=== PATIENT | female | born 1945 | race Caucasian/White ===

== ENCOUNTER 2019-03-09 16:25 | Inpatient (IN) | payer MEDICARE, OTHER ==
[~2019-03-09] VITALS: Ht 157.5 cm; Wt 78.5 kg
--- NOTE | 2019-03-09 20:00 | NUR ---
Admitted a 73 y/o female from [facility]. Patient initially on voluntary hold, however upon face to face evaluation, patient presents as alert and oriented x 1, confused, disorganized, stares blankly, unable to follow through a meaningful conversation. With this assessment, Dr. Mejia notified as well as nurse job site supervisor Ankit. booster pump operator Pau SHARMA called and assessed the patient and placed the patient on 5150 hold for DTS. Patient will be followed medically by [facility] group of doctors. Dr. Mejia ordered STAT labs with Mg level & EKG noted and carried out. Patient assisted to the room, changed to clean gown. Skin and body assessment done. Pictures taken and placed in chart. Patient has difficulty walking, PT eval triggered. Notified Blake Gunn (son). Informed of visiting hours and unit policies. Belongings and contraband checked. Q15 min checks initiated. Care plan started. Vital signs checked and recorded. Patient's rights discussed, guide to prescription meds handbook provided. Patient advised of the hold. MRSA specimen collected. Will monitor patient for mood, safety and behavior. Will endorse to the day shift.
[2019-03-09] MEDS ORDERED: MAG HYDROX/AL HYDROX/SIMETH 30 ML UDC PO PRN (21:00)
[2019-03-09] MEDS ORDERED: MAGNESIUM HYDROXIDE 30 ML UDC PO PRN (21:00)
[2019-03-09] MEDS ORDERED: LORAZEPAM 0.5 MG TABLET PO PRN (21:00)
[2019-03-09] MEDS ORDERED: ACETAMINOPHEN 325 MG TABLET PO PRN (21:00)
[2019-03-09 22:06] LABS: BASOPHILS % (AUTO) 0.3 % (0.0-2.0); EOSINOPHILS % (AUTO) 2.7 % (0.0-6.0); HEMATOCRIT 30 % (33-45); HEMOGLOBIN 9.7 g/dL (11.5-14.8); LYMPHOCYTES # (AUTO) 1.8 /CMM (0.8-4.8); LYMPHOCYTES % (AUTO) 31.2 % (20.0-44.0); MEAN CORPUSCULAR HGB CONC 33 g/dl (31.0-36.0); MEAN CORPUSCULAR VOLUME 90 fL (82-100); MONOCYTES # (AUTO) 0.4 /CMM (0.1-1.30); MONOCYTES % (AUTO) 6.3 % (2.0-12.0); NEUTROPHILS # (AUTO) 3.5 /CMM (1.8-8.9); NEUTROPHILS % (AUTO) 59.5 % (43.0-81.0); PLATELET COUNT (AUTO) 206 /CMM (150-450); RED BLOOD CELL COUNT(AUTO) 3.28 MIL/uL (4.0-5.2); WHITE BLOOD COUNT (AUTO) 5.9 K/uL (4.3-11.0)
[2019-03-09] MEDS ORDERED: POTA10CA43 PO (22:07)
[2019-03-09] MEDS ORDERED: MELA3TAB PO (22:07)
[2019-03-09] MEDS ORDERED: MEMA10TA PO (22:07)
[2019-03-09] MEDS ORDERED: ROSU40TA PO (22:07)
[2019-03-09] MEDS ORDERED: AMLO10TA7 PO (22:07)
[2019-03-09] MEDS ORDERED: PIOG45TA5 PO (22:07)
[2019-03-09] MEDS ORDERED: FLUO40CA49 PO (22:07)
[2019-03-09] MEDS ORDERED: LEVO50TA8 PO (22:07)
[2019-03-09] MEDS ORDERED: LISI40TA4 PO (22:07)
[2019-03-09] MEDS ORDERED: MEGE40TA PO (22:07)
[2019-03-09 22:12] LABS: CALCIUM, SERUM 8.4 mg/dL (8.5-10.1); CARBON DIOXIDE 23 mmol/L (21-32); CHLORIDE 111 mmol/L (98-107); CREATININE 0.7 mg/dL (0.6-1.3); GLUCOSE 156 mg/dL (74-106); POTASSIUM 3.6 mmol/L (3.5-5.1); SODIUM SERUM 142 mmol/L (136-145); UREA NITROGEN, BLOOD 14 mg/dL (7-18)
[2019-03-09 22:20] LABS: ALANINE AMINOTRANSFERASE 27 U/L (12-78); ALBUMIN 2.6 g/dL (3.4-5.0); ALKALINE PHOSPHATASE 65 U/L (46-116); ASPARTATE AMINOTRANSFERASE 15 U/L (15-37); BILIRUBIN,TOTAL 0.4 mg/dL (0.2-1.0); MAGNESIUM 2.2 mg/dL (1.8-2.4); TOTAL PROTEIN, SERUM 6.2 g/dL (6.4-8.2)
[2019-03-09] MEDS ORDERED: DEXTROSE 50%-WATER 50 ML DISP.SYRIN IV PRN (22:30)
[2019-03-09 23:20] VITALS: BP 155/72
[2019-03-09] MEDS: BLOOD SUGAR DIAGNOSTIC 1 EACH STRIP VI SCH (23:52)
[2019-03-10 07:18] LABS: BASOPHILS % (AUTO) 0.4 % (0.0-2.0); EOSINOPHILS % (AUTO) 3.7 % (0.0-6.0); HEMATOCRIT 32 % (33-45); HEMOGLOBIN 10.6 g/dL (11.5-14.8); LYMPHOCYTES # (AUTO) 1.5 /CMM (0.8-4.8); LYMPHOCYTES % (AUTO) 29.8 % (20.0-44.0); MEAN CORPUSCULAR HGB CONC 33 g/dl (31.0-36.0); MEAN CORPUSCULAR VOLUME 89 fL (82-100); MONOCYTES # (AUTO) 0.2 /CMM (0.1-1.30); MONOCYTES % (AUTO) 4.8 % (2.0-12.0); NEUTROPHILS # (AUTO) 3.2 /CMM (1.8-8.9); NEUTROPHILS % (AUTO) 61.3 % (43.0-81.0); PLATELET COUNT (AUTO) 217 /CMM (150-450); RED BLOOD CELL COUNT(AUTO) 3.59 MIL/uL (4.0-5.2); WHITE BLOOD COUNT (AUTO) 5.1 K/uL (4.3-11.0)
[2019-03-10 07:27] LABS: THYROID STIMULATING HORMONE 4.077 uIU/mL (0.358-3.74)
[2019-03-10 07:28] LABS: CALCIUM, SERUM 8.4 mg/dL (8.5-10.1); CARBON DIOXIDE 22 mmol/L (21-32); CHLORIDE 109 mmol/L (98-107); CREATININE 0.7 mg/dL (0.6-1.3); GLUCOSE 133 mg/dL (74-106); MAGNESIUM 2.1 mg/dL (1.8-2.4); PHOSPHORUS 2.7 mg/dL (2.5-4.9); POTASSIUM 3.6 mmol/L (3.5-5.1); SODIUM SERUM 141 mmol/L (136-145); UREA NITROGEN, BLOOD 9 mg/dL (7-18)
[2019-03-10] MEDS: BLOOD SUGAR DIAGNOSTIC 1 EACH STRIP VI SCH ×4 (07:30→22:35)
[2019-03-10 08:00] VITALS: BP 160/74
[2019-03-10] MEDS ORDERED: MEGESTROL ACETATE 40 MG TABLET PO SCH (09:00)
[2019-03-10] MEDS: PIOGLITAZONE HCL 15 MG TABLET PO SCH (09:50)
[2019-03-10] MEDS: LEVOTHYROXINE SODIUM 50 MCG TABLET PO SCH (09:50)
[2019-03-10] MEDS: ATORVASTATIN 40 MG TABLET PO SCH (09:51)
[2019-03-10] MEDS: LISINOPRIL (20MG) 20 MG TABLET PO SCH (09:52)
[2019-03-10] MEDS: MEMANTINE HCL 5 MG TABLET PO SCH ×2 (09:52→17:00)
[2019-03-10] MEDS: AMLODIPINE BESYLATE 10 MG TABLET PO SCH (09:53)
[2019-03-10] MEDS ORDERED: SERTRALINE HCL 25 MG TABLET PO SCH (13:00)
--- NOTE | 2019-03-10 14:52 | NUR ---
SW contacted pts son Blake [phone] and spoke to him regarding collateral information, discharge plan, and discussed treatment plan. Pts son stated that he wishes for pt to return home and also agreed with treatment plan.
--- NOTE | 2019-03-10 15:48 | NUR ---
INITIAL DISCHARGE PLAN: Son Blake [phone] wishes for pt to be discharged home to [address] [place] [address]. SW will help form a safe and proper discharge in collaboration with MD and pts son.
[2019-03-10 16:19] VITALS: BP 125/65
[2019-03-10 20:00] VITALS: BP 118/56
[2019-03-10] MEDS ORDERED: MIRTAZAPINE 15 MG TABLET PO SCH (22:00)
[2019-03-10] MEDS: MIRTAZAPINE 15 MG TABLET PO SCH (22:35)
[2019-03-10] MEDS: *INSULIN REGULAR(HUMULIN R)HUM 100 UNIT/ML VIAL SQ PRN (22:44)
[2019-03-11 08:00] VITALS: BP 154/76
[2019-03-11] MEDS: BLOOD SUGAR DIAGNOSTIC 1 EACH STRIP VI SCH ×4 (08:15→21:59)
[2019-03-11] MEDS: PIOGLITAZONE HCL 15 MG TABLET PO SCH (09:00)
--- NOTE | 2019-03-11 09:27 | NUR ---
WOUND CARE CONSULT: PT PRESENTS WITH INCONTINENCE. RECOMMENDATIONS MADE FOR SKIN PROTECTION. DISCUSSED WITH NURSING STAFF. MD IN AGREEMENT WITH PLAN OF CARE.
--- NOTE | 2019-03-11 09:56 | NUR ---
GROUP NOTE: SW prompted pt to participate in group but pt refused to talk and get out of bed. Pt is depressed and is withdrawn and isolated. Addendum: 03/11/19 at 0959 by ELGIN DORANTES GROUP WAS HELD ON 03/10/19 at 2:00pm.
[2019-03-11] MEDS: LEVOTHYROXINE SODIUM 50 MCG TABLET PO SCH (10:35)
[2019-03-11] MEDS: AMLODIPINE BESYLATE 10 MG TABLET PO SCH (10:35)
[2019-03-11] MEDS: LISINOPRIL (20MG) 20 MG TABLET PO SCH (10:36)
[2019-03-11] MEDS: MEMANTINE HCL 5 MG TABLET PO SCH ×2 (10:36→17:49)
[2019-03-11] MEDS: ATORVASTATIN 40 MG TABLET PO SCH (10:36)
[2019-03-11] MEDS: Z GUARD REMEDY 2 OZ OINT TP SCH (10:38)
[2019-03-11] MEDS: LORAZEPAM 0.5 MG TABLET PO SCH ×2 (13:33→17:48)
--- NOTE | 2019-03-11 14:39 | NUR ---
Group Note: SW prompted pt to participate in group on 03/11/19 at 1:30PM but pt refused to talk and get out of bed. Pt is depressed and is withdrawn and isolated.
[2019-03-11 16:00] VITALS: BP 129/60
--- NOTE | 2019-03-11 16:57 | NUR ---
very withdrawn,appears depressed.flat affect.son calling in to check on pt.
[2019-03-11] MEDS: GLUCERNA SHAKE 237 ML CAN PO SCH (17:49)
[2019-03-11] MEDS: SERTRALINE HCL 25 MG TABLET PO SCH (17:49)
[2019-03-11 20:00] VITALS: BP 146/61
[2019-03-11] MEDS: MIRTAZAPINE 15 MG TABLET PO SCH (21:59)
[2019-03-11] MEDS: *INSULIN REGULAR(HUMULIN R)HUM 100 UNIT/ML VIAL SQ PRN (22:13)
[2019-03-12 08:00] VITALS: BP 163/74
[2019-03-12] MEDS: BLOOD SUGAR DIAGNOSTIC 1 EACH STRIP VI SCH ×4 (08:29→22:20)
[2019-03-12] MEDS: GLUCERNA SHAKE 237 ML CAN PO SCH ×2 (08:51→18:16)
[2019-03-12] MEDS: LORAZEPAM 0.5 MG TABLET PO SCH ×3 (09:00→18:16)
[2019-03-12] MEDS: PIOGLITAZONE HCL 15 MG TABLET PO SCH (09:00)
[2019-03-12] MEDS: MEMANTINE HCL 5 MG TABLET PO SCH ×2 (09:20→18:14)
[2019-03-12] MEDS: ATORVASTATIN 40 MG TABLET PO SCH (09:20)
[2019-03-12] MEDS: LISINOPRIL (20MG) 20 MG TABLET PO SCH (09:21)
[2019-03-12] MEDS: AMLODIPINE BESYLATE 10 MG TABLET PO SCH (09:21)
[2019-03-12] MEDS: LEVOTHYROXINE SODIUM 50 MCG TABLET PO SCH (09:21)
[2019-03-12] MEDS: Z GUARD REMEDY 2 OZ OINT TP PRN (09:22)
[2019-03-12] MEDS: Z GUARD REMEDY 2 OZ OINT TP SCH (09:25)
--- NOTE | 2019-03-12 12:30 | NUR ---
insulin coverage held as pt. not eating much.held for breakfast and lunch meals.
[2019-03-12] MEDS: SERTRALINE HCL 25 MG TABLET PO SCH ×2 (13:35→18:13)
[2019-03-12 16:00] VITALS: BP 141/76
--- NOTE | 2019-03-12 17:50 | NUR ---
noted redness at rt. ankle.photo taken,feet offloaded and mepilex to site.to endorse to eve. oliver.
--- NOTE | 2019-03-12 18:00 | NUR ---
wally watkins ordered.
[2019-03-12] MEDS: INSULIN REGULAR, HUMAN 100 UNIT/ML 3 ML VIAL SQ PRN (18:22)
[2019-03-12 19:42] VITALS: BP 137/65
[2019-03-12] MEDS: MIRTAZAPINE 15 MG TABLET PO SCH (22:22)
[2019-03-12] MEDS: *INSULIN REGULAR(HUMULIN R)HUM 100 UNIT/ML VIAL SQ PRN (22:29)
[2019-03-13 08:00] VITALS: BP 163/84
[2019-03-13] MEDS: GLUCERNA SHAKE 237 ML CAN PO SCH ×2 (08:00→17:59)
[2019-03-13] MEDS: BLOOD SUGAR DIAGNOSTIC 1 EACH STRIP VI SCH ×4 (08:28→21:35)
[2019-03-13] MEDS: PIOGLITAZONE HCL 15 MG TABLET PO SCH (09:00)
[2019-03-13] MEDS: Z GUARD REMEDY 2 OZ OINT TP SCH (09:00)
[2019-03-13] MEDS: ATORVASTATIN 40 MG TABLET PO SCH (09:00)
[2019-03-13] MEDS: LORAZEPAM 0.5 MG TABLET PO SCH ×3 (09:00→17:00)
[2019-03-13] MEDS: LISINOPRIL (20MG) 20 MG TABLET PO SCH (09:00)
[2019-03-13] MEDS: AMLODIPINE BESYLATE 10 MG TABLET PO SCH (09:00)
[2019-03-13] MEDS: LEVOTHYROXINE SODIUM 50 MCG TABLET PO SCH (09:00)
[2019-03-13] MEDS: MEMANTINE HCL 5 MG TABLET PO SCH ×2 (09:00→18:01)
[2019-03-13] MEDS: INSULIN REGULAR, HUMAN 100 UNIT/ML 3 ML VIAL SQ PRN (10:00)
[2019-03-13] MEDS: *INSULIN REGULAR(HUMULIN R)HUM 100 UNIT/ML VIAL SQ PRN ×2 (12:43→21:44)
[2019-03-13] MEDS: SERTRALINE HCL 25 MG TABLET PO SCH ×2 (13:19→18:01)
[2019-03-13 16:00] VITALS: BP 146/68
[2019-03-13 20:00] VITALS: BP 145/64
[2019-03-13] MEDS: MIRTAZAPINE 15 MG TABLET PO SCH (21:35)
[2019-03-14 08:00] VITALS: BP 156/72
[2019-03-14] MEDS: GLUCERNA SHAKE 237 ML CAN PO SCH ×2 (08:00→17:57)
[2019-03-14] MEDS: BLOOD SUGAR DIAGNOSTIC 1 EACH STRIP VI SCH ×4 (09:12→21:58)
[2019-03-14] MEDS: PIOGLITAZONE HCL 15 MG TABLET PO SCH (09:16)
[2019-03-14] MEDS: MEMANTINE HCL 5 MG TABLET PO SCH ×2 (09:17→16:24)
[2019-03-14] MEDS: LEVOTHYROXINE SODIUM 50 MCG TABLET PO SCH (09:18)
[2019-03-14] MEDS: LISINOPRIL (20MG) 20 MG TABLET PO SCH (09:18)
[2019-03-14] MEDS: AMLODIPINE BESYLATE 10 MG TABLET PO SCH (09:18)
[2019-03-14] MEDS: ATORVASTATIN 40 MG TABLET PO SCH (09:20)
[2019-03-14] MEDS: LORAZEPAM 0.5 MG TABLET PO SCH ×2 (09:21→12:22)
[2019-03-14] MEDS: Z GUARD REMEDY 2 OZ OINT TP SCH (09:24)
[2019-03-14] MEDS: INSULIN REGULAR, HUMAN 100 UNIT/ML 3 ML VIAL SQ PRN ×3 (09:24→17:52)
--- NOTE | 2019-03-14 09:25 | NUR ---
WOUND CARE CONSULT: PT SEEN FOR RT POSTERIOR ANKLE DRY ABRASION. NO REDNESS, TENDERNESS OR DRAINAGE NOTED. HEELS TO BE FLOATED AT ALL TIMES. DISCUSSED SKIN PROTECTION WITH NURSING STAFF. PT CONTINUES TO BE INCONTINENT. WILL SEE PRN. RANKIN IN AGREEMENT WITH PLAN OF CARE. Addendum: 03/14/19 at 0905 by ERNESTO CAMACHO WNDNU Amended: Links added.
[2019-03-14] MEDS: SERTRALINE HCL 25 MG TABLET PO SCH ×2 (12:22→14:12)
[2019-03-14] MEDS: OLANZAPINE 2.5 MG TABLET PO SCH ×2 (14:12→16:24)
--- NOTE | 2019-03-14 15:20 | NUR ---
GROUP NOTE: SW prompted pt to participate in group, pt refused stating she wanted to stay in bed. Pt is isolating and withdrawn.
[2019-03-14 16:00] VITALS: BP 123/66
[2019-03-14] MEDS: SERTRALINE HCL 50 MG TABLET PO SCH (16:24)
--- NOTE | 2019-03-14 17:25 | NUR ---
CORRECTION ON FS: PATIENT HAS BEEN IN BED ALL DAY W/ NO AGGRESSION PRESENT. SHE PRESENTS WITH DEPRESSED MOOD. COOPERATIVE.
--- NOTE | 2019-03-14 18:26 | NUR ---
CORRECTION ON FS: PATIENT HAS BEEN IN BED ALL DAY W/ NO AGGRESSION PRESENT. SHE PRESENTS WITH DEPRESSED MOOD. COOPERATIVE.
[2019-03-14 19:51] VITALS: BP 115/58
[2019-03-14] MEDS: MIRTAZAPINE 15 MG TABLET PO SCH (21:17)
[2019-03-14] MEDS: *INSULIN REGULAR(HUMULIN R)HUM 100 UNIT/ML VIAL SQ PRN (21:59)
[2019-03-15 08:00] VITALS: BP 126/64
[2019-03-15] MEDS: BLOOD SUGAR DIAGNOSTIC 1 EACH STRIP VI SCH ×4 (08:22→22:24)
[2019-03-15] MEDS: GLUCERNA SHAKE 237 ML CAN PO SCH ×2 (08:33→18:12)
[2019-03-15] MEDS: Z GUARD REMEDY 2 OZ OINT TP SCH (09:57)
[2019-03-15] MEDS: INSULIN REGULAR, HUMAN 100 UNIT/ML 3 ML VIAL SQ PRN ×4 (10:01→22:53)
[2019-03-15] MEDS: ATORVASTATIN 40 MG TABLET PO SCH (10:07)
[2019-03-15] MEDS: MEMANTINE HCL 5 MG TABLET PO SCH ×2 (10:07→18:13)
[2019-03-15] MEDS: OLANZAPINE 2.5 MG TABLET PO SCH (10:07)
[2019-03-15] MEDS: AMLODIPINE BESYLATE 10 MG TABLET PO SCH (10:08)
[2019-03-15] MEDS: PIOGLITAZONE HCL 15 MG TABLET PO SCH (10:08)
[2019-03-15] MEDS: LEVOTHYROXINE SODIUM 50 MCG TABLET PO SCH (10:11)
--- NOTE | 2019-03-15 13:38 | NUR ---
JAYNA contacted pts son Blake [phone] and provided him with an update. JAYNA informed him that pt has been responding well to the Zyprexa and began eating more. JAYNA informed him that pt ate 80% of her breakfast on this present day.
[2019-03-15] MEDS: SERTRALINE HCL 25 MG TABLET PO SCH (14:12)
--- NOTE | 2019-03-15 15:00 | NUR ---
APPETITE IMPROVED TODAY.DIET CHG. TO CHOPPED.
[2019-03-15] MEDS: LISINOPRIL (20MG) 20 MG TABLET PO SCH (15:52)
[2019-03-15 16:00] VITALS: BP 105/51
[2019-03-15] MEDS: SERTRALINE HCL 50 MG TABLET PO SCH (18:13)
[2019-03-15] MEDS ORDERED: OLANZAPINE 2.5 MG TABLET PO SCH ×2 (18:30→20:00)
[2019-03-15 20:33] VITALS: BP 132/61
[2019-03-15] MEDS: MIRTAZAPINE 15 MG TABLET PO SCH (22:24)
--- NOTE | 2019-03-15 22:53 | NUR ---
RN-NOTE: PT'S BLOOD SUGAR LEVEL RESULT 165MG/DL WITH SLIDING SCALE OF 3UNITS OF REGULAR INSULIN HS. SNACKS GIVEN AFTER ADMINISTERING INSULIN.
[2019-03-16 08:00] VITALS: BP 129/62
[2019-03-16] MEDS: GLUCERNA SHAKE 237 ML CAN PO SCH ×2 (08:15→16:50)
[2019-03-16] MEDS: BLOOD SUGAR DIAGNOSTIC 1 EACH STRIP VI SCH ×4 (08:19→21:07)
[2019-03-16] MEDS ORDERED: OLANZAPINE 2.5 MG TABLET PO SCH (09:00)
--- NOTE | 2019-03-16 10:16 | NUR ---
Group Note: SW prompted pt to participate in group on 03/15/19 at 3pm but the pt refused stating she wanted to stay in bed. Pt is isolating and withdrawn.
[2019-03-16] MEDS: LEVOTHYROXINE SODIUM 50 MCG TABLET PO SCH (10:29)
[2019-03-16] MEDS: ATORVASTATIN 40 MG TABLET PO SCH (10:29)
[2019-03-16] MEDS: LISINOPRIL (20MG) 20 MG TABLET PO SCH (10:29)
[2019-03-16] MEDS: MEMANTINE HCL 5 MG TABLET PO SCH ×2 (10:29→17:47)
[2019-03-16] MEDS: PIOGLITAZONE HCL 15 MG TABLET PO SCH (10:30)
[2019-03-16] MEDS: AMLODIPINE BESYLATE 10 MG TABLET PO SCH (10:30)
--- NOTE | 2019-03-16 10:48 | NUR ---
JAYNA and Psychiatrist Dr. Mejia contacted pts son Blake [phone] and discussed Psychiatrist recommendation for discharge to a SNF. Son stated that he agreed however, he stated that his siblings are not agreeable with pts hospitalization and also wanted her back home. Son stated that he has received a lot of backlash from his siblings regarding pts current hospitalization and also stated that his siblings are not involved with pts care at home and that he is pts primary pvc loader and DPOA. Son wishes to discuss SNF placement with his siblings and then make a decision.
[2019-03-16] MEDS: Z GUARD REMEDY 2 OZ OINT TP SCH (11:13)
[2019-03-16] MEDS: INSULIN REGULAR, HUMAN 100 UNIT/ML 3 ML VIAL SQ PRN (13:10)
[2019-03-16] MEDS: SERTRALINE HCL 25 MG TABLET PO SCH (13:18)
--- NOTE | 2019-03-16 15:27 | NUR ---
GROUP NOTE: SW prompted pt to participate in group on 03/16/19 at 2pm but the pt refused stating she wanted to stay in bed. Pt is isolating and withdrawn.
[2019-03-16 16:00] VITALS: BP 113/56
--- NOTE | 2019-03-16 16:00 | NUR ---
JAYNA received a call from EDITH Ortiz at [facility] [phone] stating that pts son had contacted her and wanted her to coordinate pts discharge to a SNF. Diana requested if pt can be referred to [facility]. JAYNA stated that she would contact them to request fax information and fax referral.
--- NOTE | 2019-03-16 17:00 | NUR ---
noted several new small abrasions judah. buttocks and redness,blanchable to lt. heel. photos taken and placed in chart.
[2019-03-16] MEDS: SERTRALINE HCL 50 MG TABLET PO SCH (17:47)
--- NOTE | 2019-03-16 18:00 | NUR ---
seems to be a little more alert today.
[2019-03-16 20:00] VITALS: BP 147/62
[2019-03-16] MEDS: OLANZAPINE 2.5 MG TABLET PO SCH (20:20)
[2019-03-16] MEDS: *INSULIN REGULAR(HUMULIN R)HUM 100 UNIT/ML VIAL SQ PRN (21:13)
[2019-03-17 08:00] VITALS: BP 160/99
[2019-03-17] MEDS: AMLODIPINE BESYLATE 10 MG TABLET PO SCH (08:39)
[2019-03-17] MEDS: LEVOTHYROXINE SODIUM 50 MCG TABLET PO SCH (08:39)
[2019-03-17] MEDS: PIOGLITAZONE HCL 15 MG TABLET PO SCH (08:39)
[2019-03-17] MEDS: BLOOD SUGAR DIAGNOSTIC 1 EACH STRIP VI SCH ×4 (08:39→21:11)
[2019-03-17] MEDS: LISINOPRIL (20MG) 20 MG TABLET PO SCH (08:40)
[2019-03-17] MEDS: MEMANTINE HCL 5 MG TABLET PO SCH ×2 (08:40→16:57)
[2019-03-17] MEDS: Z GUARD REMEDY 2 OZ OINT TP SCH (08:40)
[2019-03-17] MEDS: ATORVASTATIN 40 MG TABLET PO SCH (08:40)
[2019-03-17] MEDS: GLUCERNA SHAKE 237 ML CAN PO SCH ×2 (08:46→17:24)
--- NOTE | 2019-03-17 09:23 | NUR ---
JAYNA faxed SNF referral to Daylin, coordinator of health services at [facility] Address: [address] [place] [address] for review.
--- NOTE | 2019-03-17 09:26 | NUR ---
SW attempted to contact [facility] Address: [address] [place] [address] 4 times to request fax number there was no answer phone rang and then was disconnected.
--- NOTE | 2019-03-17 09:45 | NUR ---
SW received a call from Daylin, coordinator of library services at [facility] Address: [address] [place] [address] stating pt has been accepted to the facility.
[2019-03-17] MEDS: INSULIN REGULAR, HUMAN 100 UNIT/ML 3 ML VIAL SQ PRN ×2 (10:45→18:51)
--- NOTE | 2019-03-17 10:45 | NUR ---
RN NOTE: PATIENT'S AM BLOOD SUGAR 127 MG/DL, NO COVERAGE NEEDED.
--- NOTE | 2019-03-17 11:36 | NUR ---
SW attempted to contact [facility] Address: [address] [place] [address] there was no answer.
--- NOTE | 2019-03-17 13:35 | NUR ---
JAYNA faxed SNF referral to Carla, cash applications coordinator at [facility] Address: [facility] [place] [address] for review.
--- NOTE | 2019-03-17 13:40 | NUR ---
JAYNA contacted pts son Blake [phone] and informed him [facility] has accepted pt he stated that [facility] is too far and that he prefers pt at [facility] or [place]. JAYNA will attempt to refer pt to a SNF in [place].
[2019-03-17] MEDS: SERTRALINE HCL 25 MG TABLET PO SCH (13:58)
--- NOTE | 2019-03-17 14:01 | NUR ---
JAYNA faxed SNF referral to Vilma, drug safety coordinator at [facility] Address: [address] [place] [address] for review.
--- NOTE | 2019-03-17 15:04 | NUR ---
GROUP NOTE: SW prompted pt to attend group on 03/17/19 at 2:00pm, but was withdrawn and isolated and did not look at SW when she was talking to her.
--- NOTE | 2019-03-17 15:48 | NUR ---
JAYNA faxed SNF referral to Jenn alumni relations coordinator at [facility] Address: [address] [place] [address], [place] [address] for review.
[2019-03-17 16:00] VITALS: BP 123/54
[2019-03-17] MEDS: SERTRALINE HCL 50 MG TABLET PO SCH (16:57)
[2019-03-17 20:00] VITALS: BP 131/91
[2019-03-17] MEDS: OLANZAPINE 2.5 MG TABLET PO SCH (20:43)
[2019-03-17] MEDS: *INSULIN REGULAR(HUMULIN R)HUM 100 UNIT/ML VIAL SQ PRN (21:13)
[2019-03-18] MEDS: BLOOD SUGAR DIAGNOSTIC 1 EACH STRIP VI SCH ×4 (07:22→22:13)
[2019-03-18 08:00] VITALS: BP 125/62
[2019-03-18] MEDS: GLUCERNA SHAKE 237 ML CAN PO SCH ×2 (08:00→17:42)
[2019-03-18] MEDS: PIOGLITAZONE HCL 15 MG TABLET PO SCH (08:32)
[2019-03-18] MEDS: ATORVASTATIN 40 MG TABLET PO SCH (08:32)
[2019-03-18] MEDS: LEVOTHYROXINE SODIUM 50 MCG TABLET PO SCH (08:33)
[2019-03-18] MEDS: MEMANTINE HCL 5 MG TABLET PO SCH ×2 (08:33→16:17)
[2019-03-18] MEDS: LISINOPRIL (20MG) 20 MG TABLET PO SCH (08:33)
[2019-03-18] MEDS: AMLODIPINE BESYLATE 10 MG TABLET PO SCH (08:33)
[2019-03-18] MEDS: Z GUARD REMEDY 2 OZ OINT TP SCH (08:34)
--- NOTE | 2019-03-18 11:18 | NUR ---
SW received a call from Carla, production control coordinator at [facility] Address: [facility] [place] [address] stating pt has been accepted to the facility.
--- NOTE | 2019-03-18 11:22 | NUR ---
JAYNA contacted pts son Blake [phone] and [facility]21[facility]19, son agreed with discharge plan.
[2019-03-18] MEDS: INSULIN REGULAR, HUMAN 100 UNIT/ML 3 ML VIAL SQ PRN (11:49)
[2019-03-18] MEDS: SERTRALINE HCL 25 MG TABLET PO SCH (12:27)
--- NOTE | 2019-03-18 15:05 | NUR ---
Group note: Pt was encouraged to join group therapy session on 03/18/19 at 2:00pm. Pt. unable to attend group.
[2019-03-18 16:00] VITALS: BP 113/59
[2019-03-18] MEDS: SERTRALINE HCL 50 MG TABLET PO SCH (16:17)
[2019-03-18] MEDS: OLANZAPINE 2.5 MG TABLET PO SCH (19:56)
[2019-03-18 20:06] VITALS: BP 121/57
[2019-03-19 08:00] VITALS: BP 100/65
[2019-03-19] MEDS: GLUCERNA SHAKE 237 ML CAN PO SCH ×2 (08:03→17:44)
[2019-03-19] MEDS: BLOOD SUGAR DIAGNOSTIC 1 EACH STRIP VI SCH ×4 (08:16→21:45)
[2019-03-19] MEDS: LISINOPRIL (20MG) 20 MG TABLET PO SCH (09:00)
[2019-03-19] MEDS: AMLODIPINE BESYLATE 10 MG TABLET PO SCH (09:00)
[2019-03-19] MEDS: ATORVASTATIN 40 MG TABLET PO SCH (10:19)
[2019-03-19] MEDS: buPROPion SR 100 MG TABLET.ER PO SCH (10:20)
[2019-03-19] MEDS: MEMANTINE HCL 5 MG TABLET PO SCH ×2 (10:20→18:01)
[2019-03-19] MEDS: PIOGLITAZONE HCL 15 MG TABLET PO SCH (10:20)
[2019-03-19] MEDS: LEVOTHYROXINE SODIUM 50 MCG TABLET PO SCH (10:20)
[2019-03-19] MEDS: Z GUARD REMEDY 2 OZ OINT TP SCH (10:23)
--- NOTE | 2019-03-19 13:00 | NUR ---
NOT COVERED FOR LUNCH WITH INSULIN ONLY ATE 50% OF LUNCH.
[2019-03-19] MEDS: SERTRALINE HCL 25 MG TABLET PO SCH (13:49)
[2019-03-19 16:00] VITALS: BP 135/60
--- NOTE | 2019-03-19 17:58 | NUR ---
NO INSULIN GIVEN PT. ATE 25 % ONLY OF LUNCH
[2019-03-19] MEDS: SERTRALINE HCL 50 MG TABLET PO SCH (18:01)
[2019-03-19 19:39] VITALS: BP 130/63
[2019-03-19] MEDS: OLANZAPINE 2.5 MG TABLET PO SCH (19:39)
[2019-03-19] MEDS: INSULIN REGULAR, HUMAN 100 UNIT/ML 3 ML VIAL SQ PRN (21:49)
[2019-03-20 08:00] VITALS: BP 130/66
[2019-03-20] MEDS: GLUCERNA SHAKE 237 ML CAN PO SCH ×2 (08:03→16:33)
[2019-03-20] MEDS: Z GUARD REMEDY 2 OZ OINT TP PRN (10:07)
[2019-03-20] MEDS: Z GUARD REMEDY 2 OZ OINT TP SCH (10:08)
[2019-03-20] MEDS: PIOGLITAZONE HCL 15 MG TABLET PO SCH (12:31)
[2019-03-20] MEDS: ATORVASTATIN 40 MG TABLET PO SCH (12:31)
[2019-03-20] MEDS: LEVOTHYROXINE SODIUM 50 MCG TABLET PO SCH (12:32)
[2019-03-20] MEDS: MEMANTINE HCL 5 MG TABLET PO SCH ×2 (12:32→16:24)
[2019-03-20] MEDS: SERTRALINE HCL 25 MG TABLET PO SCH (12:32)
[2019-03-20] MEDS: AMLODIPINE BESYLATE 10 MG TABLET PO SCH (12:32)
--- NOTE | 2019-03-20 12:45 | NUR ---
Patient resting until noon when she ate lunch with SKIN FORMER assist. Patient took all medication. Doctor Jackie to adjust medication wellbutrin possibly. Will give lisinopril if blood pressure remains stable.
[2019-03-20 16:00] VITALS: BP 118/65
[2019-03-20] MEDS: SERTRALINE HCL 50 MG TABLET PO SCH (16:24)
[2019-03-20] MEDS: buPROPion SR 100 MG TABLET.ER PO SCH (16:26)
[2019-03-20] MEDS: LISINOPRIL (20MG) 20 MG TABLET PO SCH (16:26)
[2019-03-20] MEDS: INSULIN REGULAR, HUMAN 100 UNIT/ML 3 ML VIAL SQ PRN (16:47)
--- NOTE | 2019-03-20 19:18 | NUR ---
Patient endorsed to EDITH Trevizo (Gia).
[2019-03-20] MEDS: OLANZAPINE 2.5 MG TABLET PO SCH (21:02)
[2019-03-20] MEDS: BLOOD SUGAR DIAGNOSTIC 1 EACH STRIP VI SCH ×2 (21:05→22:00)
[2019-03-20 21:07] VITALS: BP 134/56
[2019-03-20] MEDS: *INSULIN REGULAR(HUMULIN R)HUM 100 UNIT/ML VIAL SQ PRN (21:09)
[2019-03-21] MEDS: BLOOD SUGAR DIAGNOSTIC 1 EACH STRIP VI SCH ×2 (07:48→12:57)
[2019-03-21 08:00] VITALS: BP 120/58
[2019-03-21] MEDS: GLUCERNA SHAKE 237 ML CAN PO SCH (08:00)
[2019-03-21] MEDS: LEVOTHYROXINE SODIUM 50 MCG TABLET PO SCH (08:15)
[2019-03-21] MEDS: ATORVASTATIN 40 MG TABLET PO SCH (08:15)
[2019-03-21 08:16] VITALS: BP 120/58
[2019-03-21] MEDS: LISINOPRIL (20MG) 20 MG TABLET PO SCH (08:16)
[2019-03-21] MEDS: buPROPion SR 100 MG TABLET.ER PO SCH (08:16)
[2019-03-21] MEDS: AMLODIPINE BESYLATE 10 MG TABLET PO SCH (08:16)
[2019-03-21] MEDS: MEMANTINE HCL 5 MG TABLET PO SCH (08:16)
[2019-03-21] MEDS: INSULIN REGULAR, HUMAN 100 UNIT/ML 3 ML VIAL SQ PRN (08:17)
[2019-03-21] MEDS: Z GUARD REMEDY 2 OZ OINT TP SCH (08:17)
--- NOTE | 2019-03-21 08:52 | NUR ---
DISCHARGE NOTE: Pt [facility] be discharged 12:00pm to [facility] Address: [address], [place] [address] . Blake [phone] has been notified and agrees with discharge plan. Pts mood is lethargic with congruent affect. Pt denied visual/auditory hallucinations and denied suicidal/homicidal ideation. Pt will be under the care of Psychiatrist: Dr. Lexi Flores Address: [address] [place] [address] and Back Shoe Worker: Dr. Guero Bowden Address: [address], [place] [address] . The multidisciplinary exitcare form was done, printed, signed, and given to the patient.
[2019-03-21] MEDS: PIOGLITAZONE HCL 15 MG TABLET PO SCH (09:00)
--- NOTE | 2019-03-21 09:45 | NUR ---
RN-CO: DR ANDERSON GAVE AN ORDER TO DISCONTINUE HOLD AND DISCHARGE PATIENT.
--- NOTE | 2019-03-21 13:23 | NUR ---
VEGETABLE I FARMWORKER NOTE: PATIENT IS A 73 YEAR OLD FEMALE DISCHARGED TO [facility] LOCATED AT [address] [id number] . CONTACTED SON GABBIE AND LEFT A VOICEMAIL TO CONFIRM HIS AWARENESS OF PATIENT'S DISCHARGE TO FACILITY, AWAITING CALL BACK. PATIENT IS CALM AND COOPERATIVE WITH PLAN OF CARE AND MEDICATION MANAGEMENT. NO ACUTE DISTRESS NOTED. PATIENT HAS NO COMPLAINTS. DENIES SI/HI, AUDITORY OR VISUAL HALLUCINATIONS AT THE TIME OF DISCHARGE. PATIENT IS STILL DEPRESSED, ISOLATIVE AND WITHDRAWN FROM SOCIAL INTERACTION BUT HER CONDITION HAS IMPROVED SINCE ADMISSION. EDUCATIONAL MATERIAL FOR EXIT CARE WAS PROVIDED TO PATIENT ALONG WITH A COPY FOR HERSELF. PERSONAL BELONGINGS WERE RETURNED. MEDICATIONS WERE RECONCILED WITH DR. SPIVEY AND DR. ANDERSON WITH PSYCH DISCHARGE ORDERS. FACILITY WAS CONTACTED AND REPORT WAS GIVEN TO PILAR MARIN. PATIENT WAS UNABLE TO SIGN FOR PAPERWORK AND REFUSED SKIN CHECK. FOLLOW UP WITH PSYCHIATRIST DR. SHAD MULLER [phone] [facility] [address] KERRIE CARTAGENA [address] [facility] [facility] [id number] . TRANSPORTATION ARRIVED TO AFFIRMATIVE ACTION SPECIALIST PATIENT. PATIENT LEFT THE FACILITY VIA GURNEY AT 13:00
== END 2019-03-21 13:00 | DRG 885 ==
LOC: GPS 19:42
PROVIDERS: ADMIT Psychiatry & Neurology Psychosomatic Medicine; ATTEND Internal Medicine
DX: F33.3 Major depressive disorder, recurrent, severe with psychotic symptoms (principal); F01.50 Vascular dementia, unspecified severity, without behavioral disturbance, psychotic disturbance, mood disturbance, and anxiety; G93.41 Metabolic encephalopathy; E44.1 Mild protein-calorie malnutrition; E44.0 Moderate protein-calorie malnutrition; E03.9 Hypothyroidism, unspecified; E11.9 Type 2 diabetes mellitus without complications; F03.90 Unspecified dementia, unspecified severity, without behavioral disturbance, psychotic disturbance, mood disturbance, and anxiety; I10 Essential (primary) hypertension; E66.9 Obesity, unspecified; Z86.73 Personal history of transient ischemic attack (TIA), and cerebral infarction without residual deficits; E86.0 Dehydration; D63.8 Anemia in other chronic diseases classified elsewhere; E78.5 Hyperlipidemia, unspecified; I25.2 Old myocardial infarction; K44.9 Diaphragmatic hernia without obstruction or gangrene; R32 Unspecified urinary incontinence; Z91.14 Patient's other noncompliance with medication regimen; M48.54XS Collapsed vertebra, not elsewhere classified, thoracic region, sequela of fracture; F29 Unspecified psychosis not due to a substance or known physiological condition; Z68.31 Body mass index [BMI] 31.0-31.9, adult
CPT/HCPCS: 36415; 80048-TC; 80053-TC; 80061-TC; 82140-TC; 82962-TC; 83735-TC; 84100-TC; 84443-TC; 85025-TC; 87081-TC; 97116-TC; 97530-TC; J1815